=== PATIENT | female | born 1985 | race Caucasian/White ===

== ENCOUNTER 2017-10-25 08:40 | Day surgery (SDC) | payer OTHER ==
[~2017-10-25] VITALS: Ht 157.5 cm; Wt 52.2 kg
[~2017-10-25 08:40] MED LIST: ABAC300; ACET325 PO; ALBU90OI6; BCP; CITA20 PO; CYCL10 PO; Cleocin HCl150 MG PO; Cleocin HCl300 MG PO; DICLOFENAC GEL; DIPH50 PO; ETOD400 PO; HYDACE10B PO; HYDCHL12.5 PO; IBUP200; IBUP600 PO; LORA1 PO; MELO7.5 PO; NAPR375 PO; NAPR500 PO; Norco 5-325 Ta1 EACH PO; Nortrel1 EAC1; OMEP20ER PO; ONDA4ODT MM; OXYACE5T PO; PRAZ1 PO; PRENATAL 19 TA1 EACH PO; PROM25 PO; RXSULTRIDS PO; SERT100 PO; SERT25; SULTRIDS PO; TRAM50 PO; Ultram50 MG PO; VICODIN 5-3001 EACH PO
== END 2017-10-25 11:42 | disposition home or self-care (01) ==
LOC: ORSCSDS 08:40
PROVIDERS: Orthopaedic Surgery
PROC: 0LS14ZZ Reposition Right Shoulder Tendon, Percutaneous Endoscopic Approach (ICD-10-PCS; principal; 2017-10-25 10:15)
DX: S43.431A Superior glenoid labrum lesion of right shoulder, initial encounter (principal); M75.21 Bicipital tendinitis, right shoulder; F41.9 Anxiety disorder, unspecified; J45.909 Unspecified asthma, uncomplicated; Z79.899 Other long term (current) drug therapy; Z87.891 Personal history of nicotine dependence
CPT/HCPCS: C1713; J0171; J0690; J1100; J2250; J2370; J2405; J3010; J7120

== ENCOUNTER → 2017-11-30 | Outpatient (CLI) | payer OTHER ==
[2017-12-02 13:33] LABS: HPV Genotype 16 Not Detected (NOTDET); HPV Genotype 18 Not Detected (NOTDET)
[2017-12-12 10:42] LABS: HPV High Risk Other Not Detected (NOTDET)
== END ==
LOC: LAB SHORT 15:50 → LAB 15:50
PROVIDERS: Registered Nurse Community Health
DX: Z12.4 Encounter for screening for malignant neoplasm of cervix (principal); N76.0 Acute vaginitis
CPT/HCPCS: 87070; 87205; 87624; G0123

== ENCOUNTER → 2018-06-19 | Outpatient (CLI) | payer OTHER | LOC: LAB 15:45 → LAB SHORT 15:45 | DX: Z51.81 Encounter for therapeutic drug level monitoring (principal); Z79.899 Other long term (current) drug therapy | CPT/HCPCS: G0480 ==

== ENCOUNTER 2018-09-16 16:37 | Emergency (ER) | payer OTHER ==
[~2018-09-16] VITALS: Ht 157.5 cm; Wt 54.4 kg
[2018-09-16] MEDS ORDERED: CLON.1 PO (16:54)
[2018-09-16] MEDS ORDERED: DULO60 (16:54)
[2018-09-16] MEDS ORDERED: Omeprazole20 M1 (16:55)
[2018-09-16] MEDS ORDERED: OXYC5 (16:56)
[2018-09-16 17:32] LABS: BASOPHILS ABSOLUTE AUTO 0.03 K/mm3 (0.00-0.23); BASOPHILS PERCENT AUTO 0 % (0-2); EOSINOPHILS ABSOLUTE AUTO 0.18 K/mm3 (0.00-0.68); EOSINOPHILS PERCENT AUTO 2 % (0-6); Hematocrit 46.8 % (33.0-51.0); IMMATURE GRAN ABSOLUTE AUTO 0.02 K/mm3 (0.00-0.10); IMMATURE GRAN PERCENT AUTO 0 % (0-1); LYMPHOCYTES ABSOLUTE AUTO 1.26 K/mm3 (0.84-5.20); LYMPHOCYTES PERCENT AUTO 15 % (21-46); MONOCYTES ABSOLUTE AUTO 0.56 K/mm3 (0.16-1.47); MONOCYTES PERCENT AUTO 7 % (4-13); Mean Corpuscular HGB 29.1 pg (26.0-34.0); Mean Corpuscular HGB Conc 34.2 g/dL (31.5-36.5); Mean Corpuscular Volume 85 fL (80-100); Mean Platelet Volume 9.6 fL (9.1-12.4); NEUTROPHILS ABSOLUTE AUTO 6.54 K/mm3 (1.96-9.15); NEUTROPHILS PERCENT AUTO 76 % (41-73); Platelet Count 185 K/mm3 (150-400); RDW Coefficient Variation 12.8 % (11.7-14.2); RDW Standard Deviation 39.4 fL (35.1-46.3); White Blood Cell Count 8.59 K/mm3 (4.00-11.30)
[2018-09-16 17:50] LABS: Alanine Aminotransfer (ALT/SGP 20 U/L (12-78); Albumin, Blood 4.2 g/dL (3.4-5.0); Albumin/Globulin Ratio 1.2 (0.8-1.8); Alk Phos 78 U/L (50-136); Anion Gap 7 mmol/L (6-16); Aspartate Aminotrans (AST/SGOT 13 U/L (12-37); Bilirubin, Total 0.7 mg/dL (0.1-1.0); Blood Urea Nitrogen 7 mg/dL (8-24); CO2, Blood 24 mmol/L (21-32); Chloride, Blood 110 mmol/L (98-108); Creatinine, Blood 0.87 mg/dL (0.40-1.00); Globulin, Blood 3.4 g/dL (2.2-4.0); Glomerular Filtration Rate >60 (60-); Glucose, Blood 92 mg/dL (70-99); Potassium, Blood 3.7 mmol/L (3.5-5.5); Sodium, Blood 141 mmol/L (136-145); Total Protein, Blood 7.6 g/dL (6.4-8.2)
[2018-09-16] MEDS ORDERED: Bentyl20 MG PO (18:47)
[2018-09-16] MEDS ORDERED: EMVERM100 MG PO (18:47)
[2018-09-16] MEDS ORDERED: Norco 5-325 Ta1 EACH PO (18:47)
== END 2018-09-16 19:04 | disposition home or self-care (01) ==
LOC: ER 16:37
PROVIDERS: Emergency Medicine
DX: B82.9 Intestinal parasitism, unspecified (principal); F32.9 Major depressive disorder, single episode, unspecified; Z79.899 Other long term (current) drug therapy; Z87.891 Personal history of nicotine dependence
CPT/HCPCS: 36415; 74176; 80053; 83690; 85025; J2405; J3010

== ENCOUNTER 2018-10-02 17:40 | Emergency (ER) | payer OTHER ==
[~2018-10-02] VITALS: Ht 157.5 cm; Wt 54.4 kg
[~2018-10-02 17:40] MED LIST changes: +Bentyl20 MG PO; +CLON.1 PO; +DULO60; +EMVERM100 MG PO; +OXYC5; +Omeprazole20 M1
[2018-10-02 18:48] LABS: BASOPHILS ABSOLUTE AUTO 0.06 K/mm3 (0.00-0.23); BASOPHILS PERCENT AUTO 1 % (0-2); EOSINOPHILS ABSOLUTE AUTO 0.24 K/mm3 (0.00-0.68); EOSINOPHILS PERCENT AUTO 3 % (0-6); Hematocrit 40.9 % (33.0-51.0); IMMATURE GRAN ABSOLUTE AUTO 0.01 K/mm3 (0.00-0.10); IMMATURE GRAN PERCENT AUTO 0 % (0-1); LYMPHOCYTES ABSOLUTE AUTO 3.97 K/mm3 (0.84-5.20); LYMPHOCYTES PERCENT AUTO 47 % (21-46); MONOCYTES ABSOLUTE AUTO 0.59 K/mm3 (0.16-1.47); MONOCYTES PERCENT AUTO 7 % (4-13); Mean Corpuscular HGB 29.5 pg (26.0-34.0); Mean Corpuscular HGB Conc 34.2 g/dL (31.5-36.5); Mean Corpuscular Volume 86 fL (80-100); Mean Platelet Volume 9.9 fL (9.1-12.4); NEUTROPHILS ABSOLUTE AUTO 3.54 K/mm3 (1.96-9.15); NEUTROPHILS PERCENT AUTO 42 % (41-73); Platelet Count 239 K/mm3 (150-400); RDW Coefficient Variation 12.8 % (11.7-14.2); Red Blood Cell Count 4.74 M/mm3 (3.80-5.20); White Blood Cell Count 8.41 K/mm3 (4.00-11.30)
[2018-10-02 19:02] LABS: Alanine Aminotransfer (ALT/SGP 22 U/L (12-78); Albumin, Blood 3.8 g/dL (3.4-5.0); Albumin/Globulin Ratio 1.2 (0.8-1.8); Alk Phos 75 U/L (50-136); Anion Gap 9 mmol/L (6-16); Aspartate Aminotrans (AST/SGOT 14 U/L (12-37); Bilirubin, Total 0.3 mg/dL (0.1-1.0); Blood Urea Nitrogen 6 mg/dL (8-24); Bun/Creatinine Ratio 7.1 (12.0-20.0); CO2, Blood 23 mmol/L (21-32); Calcium, Blood 8.7 mg/dL (8.5-10.1); Chloride, Blood 107 mmol/L (98-108); Creatinine, Blood 0.84 mg/dL (0.40-1.00); Globulin, Blood 3.2 g/dL (2.2-4.0); Glomerular Filtration Rate >60 (60-); Glucose, Blood 80 mg/dL (70-99); Potassium, Blood 3.2 mmol/L (3.5-5.5); Sodium, Blood 139 mmol/L (136-145)
[2018-10-02 22:21] LABS: Source, Urine Clean Catch
[2018-10-02 22:24] LABS: Bilirubin, Urine Neg (Neg); Blood, Urine Neg (Neg); Glucose Qualitative, Urine Neg (Neg); Ketones, Urine Neg (Neg); Leukocyte Esterase, Urine Neg (Neg); Nitrite, Urine Neg (Neg); Protein, Urine Neg (Neg); Urobilinogen, Urine NORM (Normal)
[2018-10-02 22:30] LABS: Appearance, Urine Clear (Clear); Color, Urine Yellow (P-Yellow)
[2018-10-03] MEDS ORDERED: Zofran4 MG PO (00:10)
[2018-11-08] MEDS ORDERED: ALBU90OI61 INH (11:06)
[2018-11-08] MEDS ORDERED: CYCL10 PO (11:06)
[2018-11-08] MEDS ORDERED: ACET500 (11:07)
[2018-11-08] MEDS ORDERED: MULTI VITAMIN1 EACH PO (11:07)
[2018-11-08] MEDS ORDERED: ESCI10 PO (11:08)
[2018-11-08] MEDS ORDERED: METPHE10 PO (11:08)
[2018-11-08] MEDS ORDERED: CLON.1 PO (11:08)
[2018-11-08] MEDS ORDERED: LACT10SY PO (11:09)
[2018-11-08] MEDS ORDERED: DOCU100 PO (11:09)
[2018-11-08] MEDS ORDERED: Align4 MG PO (11:09)
[2018-11-08] MEDS ORDERED: SENN187 PO (11:10)
== END 2018-10-03 00:30 | disposition home or self-care (01) ==
LOC: ER 17:40
PROVIDERS: Emergency Medicine
DX: R10.9 Unspecified abdominal pain (principal); R11.2 Nausea with vomiting, unspecified; Z79.899 Other long term (current) drug therapy; Z87.891 Personal history of nicotine dependence
CPT/HCPCS: 36415; 80053; 81003; 83690; 85025; 96361; 96374; 96375; 99283-25; J2405; J3010; J7030

== ENCOUNTER 2018-10-06 13:52 | Emergency (ER) | payer OTHER ==
[~2018-10-06] VITALS: Ht 157.5 cm; Wt 56.7 kg
[~2018-10-06 13:52] MED LIST changes: +Zofran4 MG PO
[2018-10-06 15:03] LABS: BASOPHILS ABSOLUTE AUTO 0.05 K/mm3 (0.00-0.23); BASOPHILS PERCENT AUTO 1 % (0-2); EOSINOPHILS ABSOLUTE AUTO 0.25 K/mm3 (0.00-0.68); EOSINOPHILS PERCENT AUTO 4 % (0-6); Hematocrit 43.5 % (33.0-51.0); Hemoglobin 14.6 g/dL (11.5-16.0); IMMATURE GRAN ABSOLUTE AUTO 0.02 K/mm3 (0.00-0.10); IMMATURE GRAN PERCENT AUTO 0 % (0-1); LYMPHOCYTES ABSOLUTE AUTO 1.78 K/mm3 (0.84-5.20); LYMPHOCYTES PERCENT AUTO 28 % (21-46); MONOCYTES ABSOLUTE AUTO 0.62 K/mm3 (0.16-1.47); MONOCYTES PERCENT AUTO 10 % (4-13); Mean Corpuscular HGB 29.3 pg (26.0-34.0); Mean Corpuscular HGB Conc 33.6 g/dL (31.5-36.5); Mean Corpuscular Volume 87 fL (80-100); Mean Platelet Volume 9.8 fL (9.1-12.4); NEUTROPHILS ABSOLUTE AUTO 3.66 K/mm3 (1.96-9.15); NEUTROPHILS PERCENT AUTO 57 % (41-73); Platelet Count 220 K/mm3 (150-400); RDW Coefficient Variation 13.2 % (11.7-14.2); Red Blood Cell Count 4.98 M/mm3 (3.80-5.20); White Blood Cell Count 6.38 K/mm3 (4.00-11.30)
[2018-10-06 15:30] LABS: Alanine Aminotransfer (ALT/SGP 20 U/L (12-78); Albumin, Blood 3.8 g/dL (3.4-5.0); Albumin/Globulin Ratio 1.2 (0.8-1.8); Alk Phos 79 U/L (50-136); Anion Gap 4 mmol/L (6-16); Aspartate Aminotrans (AST/SGOT 13 U/L (12-37); Bilirubin, Total 0.2 mg/dL (0.1-1.0); Blood Urea Nitrogen 5 mg/dL (8-24); Bun/Creatinine Ratio 6.2 (12.0-20.0); CO2, Blood 26 mmol/L (21-32); Calcium, Blood 8.5 mg/dL (8.5-10.1); Chloride, Blood 110 mmol/L (98-108); Globulin, Blood 3.2 g/dL (2.2-4.0); Glomerular Filtration Rate >60 (60-); Glucose, Blood 107 mg/dL (70-99); Potassium, Blood 4.3 mmol/L (3.5-5.5); Sodium, Blood 140 mmol/L (136-145)
[2018-10-06] MEDS ORDERED: LEXAPRO PO (15:49)
[2018-10-06] MEDS ORDERED: DEPO IM (15:50)
[2018-10-06] MEDS ORDERED: MULTI VITAMIN1 EACH PO (15:52)
[2018-10-06] MEDS ORDERED: BENTYL PO (15:52)
[2018-10-06 15:58] LABS: Source, Urine Clean Catch
[2018-10-06 16:24] LABS: Appearance, Urine Clear (Clear); Bilirubin, Urine Neg (Neg); Blood, Urine Neg (Neg); Color, Urine Yellow (P-Yellow); Glucose Qualitative, Urine Neg (Neg); Ketones, Urine Neg (Neg); Leukocyte Esterase, Urine Neg (Neg); Nitrite, Urine Neg (Neg); Protein, Urine Neg (Neg); Specific Gravity, Urine 1.005 (1.003-1.022); Urobilinogen, Urine NORM (Normal)
[2018-10-06] MEDS ORDERED: HYDR25SUP PR (17:34)
[2018-10-06] MEDS ORDERED: Ultram50 MG PO (17:34)
[2018-10-06] MEDS ORDERED: Kristalose20 GM PO (17:34)
[2018-10-06] MEDS ORDERED: Magnesium Citr296 ML PO (17:34)
[2018-10-07] MEDS ORDERED: Moviprep Powde1 EACH PO (21:02)
[2018-11-08] MEDS ORDERED: ALBU90OI61 INH (11:06)
[2018-11-08] MEDS ORDERED: CYCL10 PO (11:06)
[2018-11-08] MEDS ORDERED: MULTI VITAMIN1 EACH PO (11:07)
[2018-11-08] MEDS ORDERED: ACET500 (11:07)
[2018-11-08] MEDS ORDERED: CLON.1 PO (11:08)
[2018-11-08] MEDS ORDERED: METPHE10 PO (11:08)
[2018-11-08] MEDS ORDERED: ESCI10 PO (11:08)
[2018-11-08] MEDS ORDERED: LACT10SY PO (11:09)
[2018-11-08] MEDS ORDERED: DOCU100 PO (11:09)
[2018-11-08] MEDS ORDERED: Align4 MG PO (11:09)
[2018-11-08] MEDS ORDERED: SENN187 PO (11:10)
== END 2018-10-06 17:40 | disposition home or self-care (01) ==
LOC: ER 13:52
PROVIDERS: Physician Assistant
DX: K59.00 Constipation, unspecified (principal); K64.9 Unspecified hemorrhoids; J45.909 Unspecified asthma, uncomplicated; F32.9 Major depressive disorder, single episode, unspecified; F17.210 Nicotine dependence, cigarettes, uncomplicated
CPT/HCPCS: 36415; 46600; 74176; 80053; 81003; 81025; 83690; 85025; 96361; 96374; 96375; 96376; 99284-25; J1170; J2405; J7030

== ENCOUNTER 2018-10-07 17:50 | Emergency (ER) | payer OTHER ==
[~2018-10-07] VITALS: Ht 157.5 cm; Wt 56.7 kg
[~2018-10-07 17:50] MED LIST changes: +BENTYL PO; +DEPO IM; +HYDR25SUP PR; +Kristalose20 GM PO; +LEXAPRO PO; +MULTI VITAMIN1 EACH PO; +Magnesium Citr296 ML PO
[2018-10-07] MEDS ORDERED: Moviprep Powde1 EACH PO (21:02)
[2018-11-08] MEDS ORDERED: ALBU90OI61 INH (11:06)
[2018-11-08] MEDS ORDERED: CYCL10 PO (11:06)
[2018-11-08] MEDS ORDERED: ACET500 (11:07)
[2018-11-08] MEDS ORDERED: MULTI VITAMIN1 EACH PO (11:07)
[2018-11-08] MEDS ORDERED: ESCI10 PO (11:08)
[2018-11-08] MEDS ORDERED: CLON.1 PO (11:08)
[2018-11-08] MEDS ORDERED: METPHE10 PO (11:08)
[2018-11-08] MEDS ORDERED: Align4 MG PO (11:09)
[2018-11-08] MEDS ORDERED: LACT10SY PO (11:09)
[2018-11-08] MEDS ORDERED: DOCU100 PO (11:09)
[2018-11-08] MEDS ORDERED: SENN187 PO (11:10)
== END 2018-10-07 21:18 | disposition home or self-care (01) ==
LOC: ER 17:50
DX: K59.00 Constipation, unspecified (principal); K56.7 Ileus, unspecified; Z79.899 Other long term (current) drug therapy; J45.909 Unspecified asthma, uncomplicated; F32.9 Major depressive disorder, single episode, unspecified; F17.210 Nicotine dependence, cigarettes, uncomplicated
CPT/HCPCS: 36415; 74022; 96361; 96374; 96375; 99283-25; J1170; J2765; J7030

== ENCOUNTER 2018-11-16 06:52 | Day surgery (SDC) | payer OTHER ==
[~2018-11-16] VITALS: Ht 160 cm; Wt 56.1 kg
[~2018-11-16 06:52] MED LIST changes: +ACET500; +ALBU90OI61 INH; +Align4 MG PO; +DOCU100 PO; +ESCI10 PO; +LACT10SY PO; +METPHE10 PO; +Moviprep Powde1 EACH PO; +SENN187 PO
[2018-11-16] MEDS ORDERED: OXYC5 (07:47)
--- NOTE | 2018-11-16 07:52 | NUR ---
11/16/18 0752 Dusty Momin 1ST IV ATTEMPT IN RFA UNSUCCESSFUL, ORSC.BDK 2ND IV ATTEMPT IN RAC UNSUCCESSFUL, ORSC.BDK 3RD IV ATTE,PT IN RW SUCCESSFULL, ORSC.DMB
[2018-11-17] MEDS ORDERED: Bentyl10 MG/ML (16:59)
[2018-11-17] MEDS ORDERED: IBUP400 PO (19:53)
[2018-11-17] MEDS ORDERED: Percocet 5-3251 EACH PO (19:53)
== END 2018-11-16 08:55 | disposition home or self-care (01) ==
LOC: ORSCSDS 06:52
PROVIDERS: Student in an Organized Health Care Education/Training Program
PROC: 0DBE8ZX Excision of Large Intestine, Via Natural or Artificial Opening Endoscopic, Diagnostic (ICD-10-PCS; principal; 2018-11-16 08:00)
DX: R10.9 Unspecified abdominal pain (principal); R14.0 Abdominal distension (gaseous); K92.1 Melena; K62.89 Other specified diseases of anus and rectum; J45.909 Unspecified asthma, uncomplicated; F32.9 Major depressive disorder, single episode, unspecified; F17.210 Nicotine dependence, cigarettes, uncomplicated; Z79.899 Other long term (current) drug therapy
CPT/HCPCS: 88305; J0330; J1980; J2250; J2405; J7120

== ENCOUNTER 2018-11-17 15:34 | Emergency (ER) | payer OTHER ==
[~2018-11-17] VITALS: Ht 157.5 cm; Wt 56.7 kg
[2018-11-17 15:59] LABS: BASOPHILS ABSOLUTE AUTO 0.05 K/mm3 (0.00-0.23); BASOPHILS PERCENT AUTO 1 % (0-2); EOSINOPHILS ABSOLUTE AUTO 0.15 K/mm3 (0.00-0.68); EOSINOPHILS PERCENT AUTO 2 % (0-6); Hematocrit 44.4 % (33.0-51.0); Hemoglobin 15.3 g/dL (11.5-16.0); IMMATURE GRAN ABSOLUTE AUTO 0.02 K/mm3 (0.00-0.10); IMMATURE GRAN PERCENT AUTO 0 % (0-1); LYMPHOCYTES ABSOLUTE AUTO 2.41 K/mm3 (0.84-5.20); LYMPHOCYTES PERCENT AUTO 33 % (21-46); MONOCYTES ABSOLUTE AUTO 0.46 K/mm3 (0.16-1.47); MONOCYTES PERCENT AUTO 6 % (4-13); Mean Corpuscular HGB 29.5 pg (26.0-34.0); Mean Corpuscular HGB Conc 34.5 g/dL (31.5-36.5); Mean Corpuscular Volume 86 fL (80-100); Mean Platelet Volume 10.4 fL (9.1-12.4); NEUTROPHILS ABSOLUTE AUTO 4.33 K/mm3 (1.96-9.15); NEUTROPHILS PERCENT AUTO 58 % (41-73); Platelet Count 221 K/mm3 (150-400); RDW Coefficient Variation 12.6 % (11.7-14.2); RDW Standard Deviation 39.2 fL (35.1-46.3); Red Blood Cell Count 5.19 M/mm3 (3.80-5.20); White Blood Cell Count 7.42 K/mm3 (4.00-11.30)
[2018-11-17 16:08] LABS: Source, Urine Clean Catch
[2018-11-17 16:14] LABS: Appearance, Urine Clear (Clear); Bilirubin, Urine Neg (Neg); Blood, Urine Neg (Neg); Color, Urine Yellow (P-Yellow); Glucose Qualitative, Urine Neg (Neg); Ketones, Urine Neg (Neg); Leukocyte Esterase, Urine Neg (Neg); Nitrite, Urine Neg (Neg); Protein, Urine Neg (Neg); Specific Gravity, Urine 1.005 (1.003-1.022); Urobilinogen, Urine NORM (Normal)
[2018-11-17 16:28] LABS: Alanine Aminotransfer (ALT/SGP 27 U/L (12-78); Albumin, Blood 4.1 g/dL (3.4-5.0); Albumin/Globulin Ratio 1.2 (0.8-1.8); Alk Phos 80 U/L (50-136); Anion Gap 8 mmol/L (6-16); Aspartate Aminotrans (AST/SGOT 19 U/L (12-37); Bilirubin, Total 0.2 mg/dL (0.1-1.0); Blood Urea Nitrogen 5 mg/dL (8-24); Bun/Creatinine Ratio 6.2 (12.0-20.0); CO2, Blood 23 mmol/L (21-32); Chloride, Blood 112 mmol/L (98-108); Globulin, Blood 3.5 g/dL (2.2-4.0); Glomerular Filtration Rate >60 (60-); Glucose, Blood 95 mg/dL (70-99); Potassium, Blood 3.5 mmol/L (3.5-5.5); Sodium, Blood 143 mmol/L (136-145); Total Protein, Blood 7.6 g/dL (6.4-8.2)
[2018-11-17] MEDS ORDERED: Bentyl10 MG/ML (16:59)
[2018-11-17] MEDS ORDERED: Percocet 5-3251 EACH PO (19:53)
[2018-11-17] MEDS ORDERED: IBUP400 PO (19:53)
== END 2018-11-17 20:06 | disposition home or self-care (01) ==
LOC: ER 15:34
PROVIDERS: Physician Assistant
DX: K92.1 Melena (principal); N80.9 Endometriosis, unspecified; J45.909 Unspecified asthma, uncomplicated; F32.9 Major depressive disorder, single episode, unspecified; F17.210 Nicotine dependence, cigarettes, uncomplicated; Z79.899 Other long term (current) drug therapy
CPT/HCPCS: 36415; 74177; 80053; 81003; 84703; 85025; J1170; J2405; J7120; Q9967

== ENCOUNTER 2019-04-23 10:29 | Emergency (ER) | payer OTHER ==
[~2019-04-23] VITALS: Ht 157.5 cm; Wt 59.0 kg
[~2019-04-23 10:29] MED LIST changes: +Bentyl10 MG/ML; +IBUP400 PO; +Percocet 5-3251 EACH PO
[2019-04-23] MEDS ORDERED: Triamcinolone A15 G3 TOP (11:12)
== END 2019-04-23 11:33 | disposition home or self-care (01) ==
LOC: ER 10:29
DX: L30.1 Dyshidrosis [pompholyx] (principal); Z79.899 Other long term (current) drug therapy; J45.909 Unspecified asthma, uncomplicated; F32.9 Major depressive disorder, single episode, unspecified; F17.210 Nicotine dependence, cigarettes, uncomplicated
CPT/HCPCS: 99282

== ENCOUNTER → 2019-06-18 | Outpatient (CLI) | payer OTHER ==
[~2019-06-18] MED LIST changes: +Catapres0.1 MG PO; +DICL75ER PO; +Depo-Subq104 MG/0.6; +METPHE20 PO; +OXYC5 PO; +Triamcinolone A15 G3 TOP; +Vistaril25 MG PO
[2019-06-18 12:15] LABS: U Amphetamine Screen Not Detected; U Barbituate Screen Not Detected; U Benzodiazapine Screen Not Detected; U Buprenorphine Screen Not Detected; U Cannabinoids Screen Not Detected; U Cocaine Screen Not Detected; U Methadone Screen Not Detected; U Methamphetamine Screen Not Detected; U Opiates Screen Not Detected; U Oxycodone Screen Not Detected; U Phencyclidine Screen Not Detected; U Propoxyphene Screen Not Detected
== END ==
LOC: LAB 10:10 → LAB SHORT 10:10
PROVIDERS: Student in an Organized Health Care Education/Training Program
DX: Z51.81 Encounter for therapeutic drug level monitoring (principal); Z79.899 Other long term (current) drug therapy

== ENCOUNTER 2019-06-19 19:44 | Emergency (ER) | payer OTHER ==
[~2019-06-19] VITALS: Ht 157.5 cm; Wt 53.5 kg
[~2019-06-19 19:44] MED LIST changes: -Catapres0.1 MG PO; -DICL75ER PO; -Depo-Subq104 MG/0.6; -METPHE20 PO; -OXYC5 PO; -Vistaril25 MG PO
[2019-06-19] MEDS ORDERED: METPHE20 PO (21:04)
[2019-06-19] MEDS ORDERED: Depo-Subq104 MG/0.6 (21:04)
[2019-06-19] MEDS ORDERED: OXYC5 PO (21:04)
== END 2019-06-19 21:01 | disposition home or self-care (01) ==
LOC: ER 19:44
DX: S52.551A Other extraarticular fracture of lower end of right radius, initial encounter for closed fracture (principal); J45.909 Unspecified asthma, uncomplicated; F32.9 Major depressive disorder, single episode, unspecified; F17.210 Nicotine dependence, cigarettes, uncomplicated; Z79.899 Other long term (current) drug therapy; V00.211A Fall from ice-skates, initial encounter
CPT/HCPCS: 29125; 73110; 99283-25; A9270; A9270-GY

== ENCOUNTER 2019-06-25 15:29 | Emergency (ER) | payer OTHER ==
[~2019-06-25] VITALS: Ht 160 cm; Wt 54.4 kg
[~2019-06-25 15:29] MED LIST changes: +Depo-Subq104 MG/0.6; +METPHE20 PO; +OXYC5 PO
[2019-06-25] MEDS ORDERED: Catapres0.1 MG PO (15:51)
[2019-06-25] MEDS ORDERED: Vistaril25 MG PO (15:51)
[2019-06-25] MEDS ORDERED: DICL75ER PO (15:51)
== END 2019-06-25 15:55 | disposition home or self-care (01) ==
LOC: ER 15:29
DX: S52.501D Unspecified fracture of the lower end of right radius, subsequent encounter for closed fracture with routine healing (principal); F32.9 Major depressive disorder, single episode, unspecified; F17.200 Nicotine dependence, unspecified, uncomplicated; Z79.899 Other long term (current) drug therapy; V00.211D Fall from ice-skates, subsequent encounter
CPT/HCPCS: 99281

== ENCOUNTER 2019-08-27 13:50 | Emergency (ER) | payer OTHER ==
[~2019-08-27] VITALS: Ht 157.5 cm; Wt 59.0 kg
[~2019-08-27 13:50] MED LIST changes: +Catapres0.1 MG PO; +DICL75ER PO; +Vistaril25 MG PO
[2019-08-27 14:29] LABS: BASOPHILS ABSOLUTE AUTO 0.07 K/mm3 (0.00-0.23); BASOPHILS PERCENT AUTO 1 % (0-2); EOSINOPHILS ABSOLUTE AUTO 0.17 K/mm3 (0.00-0.68); EOSINOPHILS PERCENT AUTO 1 % (0-6); Hematocrit 47.1 % (33.0-51.0); Hemoglobin 16.1 g/dL (11.5-16.0); IMMATURE GRAN ABSOLUTE AUTO 0.03 K/mm3 (0.00-0.10); IMMATURE GRAN PERCENT AUTO 0 % (0-1); LYMPHOCYTES ABSOLUTE AUTO 3.45 K/mm3 (0.84-5.20); LYMPHOCYTES PERCENT AUTO 28 % (21-46); MONOCYTES ABSOLUTE AUTO 0.84 K/mm3 (0.16-1.47); MONOCYTES PERCENT AUTO 7 % (4-13); Mean Corpuscular HGB 30.5 pg (26.0-34.0); Mean Corpuscular HGB Conc 34.2 g/dL (31.5-36.5); Mean Corpuscular Volume 89 fL (80-100); Mean Platelet Volume 9.9 fL (9.1-12.4); NEUTROPHILS ABSOLUTE AUTO 7.61 K/mm3 (1.96-9.15); NEUTROPHILS PERCENT AUTO 63 % (41-73); Platelet Count 252 K/mm3 (150-400); RDW Coefficient Variation 12.9 % (11.7-14.2); RDW Standard Deviation 42.2 fL (35.1-46.3); Red Blood Cell Count 5.28 M/mm3 (3.80-5.20); White Blood Cell Count 12.17 K/mm3 (4.00-11.30)
[2019-08-27 15:15] LABS: Alanine Aminotransfer (ALT/SGP 19 U/L (12-78); Anion Gap 7 mmol/L (6-16); Aspartate Aminotrans (AST/SGOT 11 U/L (12-37); Bilirubin, Total 0.3 mg/dL (0.1-1.0); Blood Urea Nitrogen 8 mg/dL (8-24); CO2, Blood 23 mmol/L (21-32); Calcium, Blood 8.9 mg/dL (8.5-10.1); Chloride, Blood 108 mmol/L (98-108); Glucose, Blood 124 mg/dL (70-99); Potassium, Blood 3.8 mmol/L (3.5-5.5); Sodium, Blood 138 mmol/L (136-145)
[2019-08-27 15:16] LABS: Albumin/Globulin Ratio 1.1 (0.8-1.8); Alk Phos 71 U/L (50-136); Beta HCG, Quantitative, Serum <1 mIU/mL (0-3); Bun/Creatinine Ratio 10.3 (12.0-20.0); Creatinine, Blood 0.78 mg/dL (0.40-1.00); Globulin, Blood 3.7 g/dL (2.2-4.0); Glomerular Filtration Rate >60 (60-); Total Protein, Blood 7.7 g/dL (6.4-8.2)
== END 2019-08-27 17:00 | disposition home or self-care (01) ==
LOC: ER 13:50
PROVIDERS: Physician Assistant
DX: R10.31 Right lower quadrant pain (principal); N80.9 Endometriosis, unspecified; F32.9 Major depressive disorder, single episode, unspecified; J45.909 Unspecified asthma, uncomplicated; F17.200 Nicotine dependence, unspecified, uncomplicated; Z79.899 Other long term (current) drug therapy
CPT/HCPCS: 36415; 74176; 76856; 80053; 84702; 85025; 86850; 86900; 86901; 93005; 93010; 96361; 96374; 96375; 96376; 99284-25; J1170; J2405; J7030

== ENCOUNTER 2020-07-06 10:25 | Emergency (ER) | payer OTHER ==
[~2020-07-06] VITALS: Ht 160 cm; Wt 45.4 kg
[~2020-07-06 10:25] MED LIST changes: +ACETAMINOPHEN500 MG PO; +Penicillin V P500 MG PO
[2020-07-06] MEDS ORDERED: CLON.5 PO (11:24)
[2020-07-06] MEDS ORDERED: ACETAMINOPHEN500 MG PO (12:09)
[2020-07-06] MEDS ORDERED: Benadryl25 MG PO (12:09)
== END 2020-07-06 12:49 | disposition home or self-care (01) ==
LOC: ER 10:25
DX: T63.441A Toxic effect of venom of bees, accidental (unintentional), initial encounter (principal); R06.02 Shortness of breath; R22.0 Localized swelling, mass and lump, head; F32.9 Major depressive disorder, single episode, unspecified; F17.210 Nicotine dependence, cigarettes, uncomplicated; Z79.899 Other long term (current) drug therapy
CPT/HCPCS: 36415; 96374; 96375; 99282-25; A9270-GY; J0171; J1200; J1885; J2060; J2930

== ENCOUNTER 2020-10-26 15:12 | Emergency (ER) | payer OTHER ==
[~2020-10-26] VITALS: Ht 157.5 cm; Wt 54.4 kg
[~2020-10-26 15:12] MED LIST changes: +Benadryl25 MG PO; +CLON.5 PO
[2020-10-26] MEDS ORDERED: Veetids 500500 MG PO (17:49)
[2021-01-24] MEDS ORDERED: VENLAFAXINE HC150 M1 PO (21:35)
[2021-01-24] MEDS ORDERED: GABA100 PO (22:17)
[2021-01-24] MEDS ORDERED: CYCL10 PO (22:18)
== END 2020-10-26 18:12 | disposition home or self-care (01) ==
LOC: ER 15:12
DX: S02.5XXA Fracture of tooth (traumatic), initial encounter for closed fracture (principal); F17.210 Nicotine dependence, cigarettes, uncomplicated; Z79.899 Other long term (current) drug therapy; Z88.6 Allergy status to analgesic agent; X58.XXXA Exposure to other specified factors, initial encounter; Y93.89 Activity, other specified
CPT/HCPCS: 96372; 99282-25; A9270; J1885

== ENCOUNTER 2020-12-29 14:19 | Emergency (ER) | payer OTHER ==
[~2020-12-29] VITALS: Ht 157.5 cm; Wt 54.4 kg
[~2020-12-29 14:19] MED LIST changes: +Veetids 500500 MG PO
[2020-12-29] MEDS ORDERED: VENL25 PO (14:53)
[2020-12-29] MEDS ORDERED: Norco 5-325 Ta1 EACH PO (15:10)
[2021-01-24] MEDS ORDERED: VENLAFAXINE HC150 M1 PO (21:35)
[2021-01-24] MEDS ORDERED: GABA100 PO (22:17)
[2021-01-24] MEDS ORDERED: CYCL10 PO (22:18)
== END 2020-12-29 15:18 | disposition home or self-care (01) ==
LOC: ER 14:19
DX: S93.401A Sprain of unspecified ligament of right ankle, initial encounter (principal); F17.210 Nicotine dependence, cigarettes, uncomplicated; Z79.899 Other long term (current) drug therapy; X50.1XXA Overexertion from prolonged static or awkward postures, initial encounter
CPT/HCPCS: 29515; 73630; 99283-25; L1906

== ENCOUNTER 2021-02-06 17:29 | Emergency (ER) | payer OTHER ==
[~2021-02-06] VITALS: Ht 157.5 cm; Wt 56.7 kg
[~2021-02-06 17:29] MED LIST changes: +GABA100 PO; +VENL25 PO; +VENLAFAXINE HC150 M1 PO
[2021-02-06] MEDS ORDERED: LORA.5 PO (18:04)
[2021-02-06 19:10] LABS: BASOPHILS ABSOLUTE AUTO 0.08 K/mm3 (0.00-0.23); BASOPHILS PERCENT AUTO 1 % (0-2); EOSINOPHILS ABSOLUTE AUTO 0.03 K/mm3 (0.00-0.68); EOSINOPHILS PERCENT AUTO 0 % (0-6); Hematocrit 39.1 % (33.0-51.0); Hemoglobin 13.7 g/dL (11.5-16.0); IMMATURE GRAN ABSOLUTE AUTO 0.02 K/mm3 (0.00-0.10); IMMATURE GRAN PERCENT AUTO 0 % (0-1); LYMPHOCYTES ABSOLUTE AUTO 2.56 K/mm3 (0.84-5.20); LYMPHOCYTES PERCENT AUTO 35 % (21-46); MONOCYTES ABSOLUTE AUTO 0.81 K/mm3 (0.16-1.47); MONOCYTES PERCENT AUTO 11 % (4-13); Mean Corpuscular HGB 28.1 pg (26.0-34.0); Mean Corpuscular Volume 80 fL (80-100); Mean Platelet Volume 9.7 fL (9.1-12.4); NEUTROPHILS ABSOLUTE AUTO 3.93 K/mm3 (1.96-9.15); NEUTROPHILS PERCENT AUTO 53 % (41-73); Platelet Count 298 K/mm3 (150-400); RDW Coefficient Variation 12.7 % (11.7-14.2); RDW Standard Deviation 36.6 fL (35.1-46.3); Red Blood Cell Count 4.88 M/mm3 (3.80-5.20); White Blood Cell Count 7.43 K/mm3 (4.00-11.30)
[2021-02-06 19:30] LABS: Alanine Aminotransfer (ALT/SGP 30 U/L (12-78); Albumin/Globulin Ratio 1.3 (0.8-1.8); Alk Phos 64 U/L (50-136); Anion Gap 5 mmol/L (6-16); Aspartate Aminotrans (AST/SGOT 25 U/L (12-37); Bilirubin, Total 0.7 mg/dL (0.1-1.0); Blood Urea Nitrogen 14 mg/dL (8-24); CO2, Blood 25 mmol/L (21-32); Calcium, Blood 9.3 mg/dL (8.5-10.1); Chloride, Blood 110 mmol/L (98-108); Creatinine, Blood 0.93 mg/dL (0.40-1.00); Globulin, Blood 3.1 g/dL (2.2-4.0); Glomerular Filtration Rate >60 (60-); Glucose, Blood 100 mg/dL (70-99); Potassium, Blood 3.5 mmol/L (3.5-5.5); Sodium, Blood 140 mmol/L (136-145); Total Protein, Blood 7.1 g/dL (6.4-8.2)
[2021-02-06 21:20] LABS: Source, Urine Clean Catch
[2021-02-06 21:23] LABS: Bilirubin, Urine Neg (Neg); Blood, Urine Neg (Neg); Glucose Qualitative, Urine Neg (Neg); Ketones, Urine 2+ (Neg); Leukocyte Esterase, Urine Neg (Neg); Nitrite, Urine Neg (Neg); Protein, Urine 1+ (Neg); Specific Gravity, Urine 1.025 (1.003-1.022); Urobilinogen, Urine NORM (Normal)
[2021-02-06 21:32] LABS: Appearance, Urine Clear (Clear); Color, Urine Yellow (P-Yellow)
[2021-02-06 21:34] LABS: U Amphetamine Screen Not Detected; U Barbituate Screen Not Detected; U Benzodiazapine Screen DETECTED; U Buprenorphine Screen Not Detected; U Cannabinoids Screen Not Detected; U Cocaine Screen Not Detected; U Methadone Screen Not Detected; U Methamphetamine Screen Not Detected; U Opiates Screen DETECTED; U Oxycodone Screen Not Detected; U Phencyclidine Screen Not Detected; U Propoxyphene Screen Not Detected
== END 2021-02-06 22:51 | disposition home or self-care (01) ==
LOC: ER 17:29
PROVIDERS: Physician Assistant
DX: R21 Rash and other nonspecific skin eruption (principal); R10.9 Unspecified abdominal pain; J45.909 Unspecified asthma, uncomplicated; F17.210 Nicotine dependence, cigarettes, uncomplicated; Z88.6 Allergy status to analgesic agent; Z79.899 Other long term (current) drug therapy
CPT/HCPCS: 74177; 80053; 81025; 83690; 85025; 96374-59; 99284-25; A9270; J1200; Q9967

== ENCOUNTER 2021-04-28 16:31 | Emergency (ER) | payer OTHER ==
[~2021-04-28] VITALS: Ht 157.5 cm; Wt 54.4 kg
[~2021-04-28 16:31] MED LIST changes: +LORA.5 PO
[2021-04-28] MEDS ORDERED: CYCL10 PO (18:39)
== END 2021-04-28 19:08 | disposition home or self-care (01) ==
LOC: ER 16:31
DX: S06.0X1A Concussion with loss of consciousness of 30 minutes or less, initial encounter (principal); S80.11XA Contusion of right lower leg, initial encounter; M54.2 Cervicalgia; F17.210 Nicotine dependence, cigarettes, uncomplicated; J45.909 Unspecified asthma, uncomplicated; Z91.040 Latex allergy status; Z88.6 Allergy status to analgesic agent; W14.XXXA Fall from tree, initial encounter
CPT/HCPCS: 70450; 71045; 72125; 73590; 99284-25; A9270

== ENCOUNTER → 2021-08-10 | Outpatient (CLI) | payer OTHER ==
[2021-08-10 18:43] LABS: BASOPHILS ABSOLUTE AUTO 0.05 K/mm3 (0.00-0.23); BASOPHILS PERCENT AUTO 1 % (0-2); EOSINOPHILS ABSOLUTE AUTO 0.19 K/mm3 (0.00-0.68); EOSINOPHILS PERCENT AUTO 4 % (0-6); Hematocrit 39.7 % (33.0-51.0); Hemoglobin 13.3 g/dL (11.5-16.0); IMMATURE GRAN ABSOLUTE AUTO 0.01 K/mm3 (0.00-0.10); IMMATURE GRAN PERCENT AUTO 0 % (0-1); LYMPHOCYTES ABSOLUTE AUTO 2.46 K/mm3 (0.84-5.20); LYMPHOCYTES PERCENT AUTO 48 % (21-46); MONOCYTES ABSOLUTE AUTO 0.48 K/mm3 (0.16-1.47); MONOCYTES PERCENT AUTO 9 % (4-13); Mean Corpuscular HGB 28.7 pg (26.0-34.0); Mean Corpuscular HGB Conc 33.5 g/dL (31.5-36.5); Mean Corpuscular Volume 86 fL (80-100); Mean Platelet Volume 11.1 fL (9.1-12.4); NEUTROPHILS ABSOLUTE AUTO 1.99 K/mm3 (1.96-9.15); NEUTROPHILS PERCENT AUTO 38 % (41-73); Platelet Count 174 K/mm3 (150-400); RDW Coefficient Variation 12.5 % (11.7-14.2); RDW Standard Deviation 39.5 fL (35.1-46.3); Red Blood Cell Count 4.63 M/mm3 (3.80-5.20); White Blood Cell Count 5.18 K/mm3 (4.00-11.30)
[2021-08-10 21:30] LABS: CHOL/HDL RATIO 3.2; Cholesterol 191 mg/dL (50-200); HDL Cholesterol 60 mg/dL (>39); LDL/HDL RATIO 1.7; Low Density Lipoprotein Chol 102 mg/dL (0-110); Thyroid Stimulating Hormone 0.912 uIU/mL (0.360-4.800); Triglycerides 147 mg/dL (30-140); Very Low Density Lipoprot Chol 29 mg/dL (6-28)
[2021-08-10 21:57] LABS: Alanine Aminotransfer (ALT/SGP 27 U/L (12-78); Albumin, Blood 3.5 g/dL (3.4-5.0); Albumin/Globulin Ratio 1.1 (0.8-1.8); Alk Phos 57 U/L (50-136); Anion Gap 4 mmol/L (6-16); Aspartate Aminotrans (AST/SGOT 25 U/L (12-37); Bilirubin, Total 0.1 mg/dL (0.1-1.0); Blood Urea Nitrogen 8 mg/dL (8-24); Bun/Creatinine Ratio 8.5 (12.0-20.0); CO2, Blood 30 mmol/L (21-32); Calcium, Blood 8.8 mg/dL (8.5-10.1); Chloride, Blood 104 mmol/L (98-108); Creatinine, Blood 0.94 mg/dL (0.40-1.00); Globulin, Blood 3.3 g/dL (2.2-4.0); Glomerular Filtration Rate >60 (60-); Glucose, Blood 100 mg/dL (70-99); Potassium, Blood 4.1 mmol/L (3.5-5.5); Sodium, Blood 138 mmol/L (136-145); Total Protein, Blood 6.8 g/dL (6.4-8.2)
== END ==
LOC: LAB 18:08 → LAB SHORT 18:08
PROVIDERS: Nurse Practitioner Family
DX: Z00.00 Encounter for general adult medical examination without abnormal findings (principal); Z13.0 Encounter for screening for diseases of the blood and blood-forming organs and certain disorders involving the immune mechanism; Z13.1 Encounter for screening for diabetes mellitus; Z13.6 Encounter for screening for cardiovascular disorders; Z13.29 Encounter for screening for other suspected endocrine disorder; Z13.228 Encounter for screening for other metabolic disorders
CPT/HCPCS: 80053; 80061; 83036; 84443; 85025

== ENCOUNTER → 2021-12-17 | Outpatient (CLI) | payer OTHER ==
[2021-12-18 10:56] LABS: Candida species (DNA Probe) Negative (NEGATIVE); G. vaginalis (DNA Probe) Negative (NEGATIVE); T. vaginalis (DNA Probe) Negative (NEGATIVE)
== END | disposition home or self-care (01) ==
LOC: LAB SHORT 16:00 → LAB 16:00
PROVIDERS: Nurse Practitioner
DX: N89.8 Other specified noninflammatory disorders of vagina (principal)
CPT/HCPCS: 87480; 87510; 87660

== ENCOUNTER → 2021-12-22 | Outpatient (CLI) | payer OTHER ==
[2021-12-22 15:59] LABS: BASOPHILS ABSOLUTE AUTO 0.07 K/mm3 (0.00-0.23); BASOPHILS PERCENT AUTO 1 % (0-2); EOSINOPHILS PERCENT AUTO 2 % (0-6); Hematocrit 38.7 % (33.0-51.0); Hemoglobin 13.5 g/dL (11.5-16.0); IMMATURE GRAN ABSOLUTE AUTO 0.02 K/mm3 (0.00-0.10); IMMATURE GRAN PERCENT AUTO 0 % (0-1); LYMPHOCYTES ABSOLUTE AUTO 2.42 K/mm3 (0.84-5.20); LYMPHOCYTES PERCENT AUTO 37 % (21-46); MONOCYTES ABSOLUTE AUTO 0.63 K/mm3 (0.16-1.47); MONOCYTES PERCENT AUTO 10 % (4-13); Mean Corpuscular HGB 28.7 pg (26.0-34.0); Mean Corpuscular HGB Conc 34.9 g/dL (31.5-36.5); Mean Corpuscular Volume 82 fL (80-100); Mean Platelet Volume 10.5 fL (9.1-12.4); NEUTROPHILS ABSOLUTE AUTO 3.35 K/mm3 (1.96-9.15); NEUTROPHILS PERCENT AUTO 51 % (41-73); Platelet Count 227 K/mm3 (150-400); RDW Coefficient Variation 12.4 % (11.7-14.2); RDW Standard Deviation 37.2 fL (35.1-46.3); Red Blood Cell Count 4.71 M/mm3 (3.80-5.20); White Blood Cell Count 6.59 K/mm3 (4.00-11.30)
[2021-12-22 22:28] LABS: Alanine Aminotransfer (ALT/SGP 49 U/L (12-78); Albumin, Blood 4.1 g/dL (3.4-5.0); Albumin/Globulin Ratio 1.6 (0.8-1.8); Alk Phos 51 U/L (50-136); Anion Gap 4 mmol/L (6-16); Aspartate Aminotrans (AST/SGOT 31 U/L (12-37); Bilirubin, Total 0.8 mg/dL (0.1-1.0); Blood Urea Nitrogen 16 mg/dL (8-24); Bun/Creatinine Ratio 16.1 (12.0-20.0); CO2, Blood 25 mmol/L (21-32); Calcium, Blood 9.1 mg/dL (8.5-10.1); Chloride, Blood 110 mmol/L (98-108); Globulin, Blood 2.5 g/dL (2.2-4.0); Glomerular Filtration Rate >60 (60-); Glucose, Blood 118 mg/dL (70-99); Potassium, Blood 3.5 mmol/L (3.5-5.5); Sodium, Blood 139 mmol/L (136-145); Total Protein, Blood 6.6 g/dL (6.4-8.2)
== END | disposition home or self-care (01) ==
LOC: LAB SHORT 15:14
PROVIDERS: Nurse Practitioner
DX: K58.9 Irritable bowel syndrome, unspecified (principal); R10.30 Lower abdominal pain, unspecified
CPT/HCPCS: 80053; 85025

== ENCOUNTER 2022-07-13 04:59 | Inpatient (IN) | payer OTHER ==
[~2022-07-13] VITALS: Ht 160 cm; Wt 68.0 kg
[~2022-07-13 04:59] MED LIST changes: +BISA5EC PO; +MAGCIT300 PO
[2022-07-13 05:33] LABS: BASOPHILS ABSOLUTE AUTO 0.05 K/mm3 (0.00-0.23); BASOPHILS PERCENT AUTO 0 % (0-2); EOSINOPHILS ABSOLUTE AUTO 0.02 K/mm3 (0.00-0.68); EOSINOPHILS PERCENT AUTO 0 % (0-6); Hemoglobin 14.8 g/dL (11.5-16.0); IMMATURE GRAN ABSOLUTE AUTO 0.04 K/mm3 (0.00-0.10); IMMATURE GRAN PERCENT AUTO 0 % (0-1); LYMPHOCYTES ABSOLUTE AUTO 1.77 K/mm3 (0.84-5.20); LYMPHOCYTES PERCENT AUTO 16 % (21-46); MONOCYTES ABSOLUTE AUTO 0.59 K/mm3 (0.16-1.47); MONOCYTES PERCENT AUTO 5 % (4-13); Mean Corpuscular HGB 29.2 pg (26.0-34.0); Mean Corpuscular HGB Conc 32.9 g/dL (31.5-36.5); Mean Corpuscular Volume 89 fL (80-100); Mean Platelet Volume 9.9 fL (9.1-12.4); NEUTROPHILS ABSOLUTE AUTO 8.81 K/mm3 (1.96-9.15); NEUTROPHILS PERCENT AUTO 78 % (41-73); Platelet Count 335 K/mm3 (150-400); RDW Coefficient Variation 12.7 % (11.7-14.2); RDW Standard Deviation 41.2 fL (35.1-46.3); Red Blood Cell Count 5.07 M/mm3 (3.80-5.20); White Blood Cell Count 11.28 K/mm3 (4.00-11.30)
[2022-07-13 05:53] LABS: Bun/Creatinine Ratio 11.4 (12.0-20.0); Calcium, Blood 8.9 mg/dL (8.5-10.1); Creatinine, Blood 1.4 mg/dL (0.40-1.00); Potassium, Blood 4.7 mmol/L (3.5-5.5)
[2022-07-13 06:00] LABS: Base Excess Venous -10.6 mmol/L; Bicarbonate Venous 15.6 mmol/L (24.0-30.0); PCO2 Venous 55.5 mmHg (38-42)
[2022-07-13 06:02] LABS: pH Blood Venous 7.13 (7.34-7.37)
[2022-07-13 06:33] LABS: Creatine Kinase MB 18.2 ng/mL (0.0-3.6); Creatine Kinase MB Index 2.8 (0.0-4.0)
--- NOTE | 2022-07-13 09:30 | NUR ---
Call to ED for report. Nurse is busy in a pt's room, and will call back to give report.
[2022-07-13 10:28] LABS: Source, Urine Clean Catch
[2022-07-13 10:44] LABS: Appearance, Urine Clear (Clear); Bilirubin, Urine Neg (Neg); Blood, Urine 4+ (Neg); Color, Urine Yellow (P-Yellow); Glucose Qualitative, Urine Neg (Neg); Ketones, Urine 1+ (Neg); Leukocyte Esterase, Urine Neg (Neg); Nitrite, Urine Neg (Neg); Protein, Urine 1+ (Neg); Urobilinogen, Urine NORM (Normal)
--- NOTE | 2022-07-13 10:44 | NUR ---
Telephone report from ISIDRO Cruz at this time. Pt has had new onset left sided weakness and numbness; RN reports that Dr. Rios was notified and that CT scan will be ordered per the doctor.
[2022-07-13 10:53] LABS: Bacteria Rare /hpf; Red Blood Cells, Urine 0-2 /hpf (0-2); Squamous Epithelial Cells Rare /hpf (Few); White Blood Cells, Urine 0-2 /hpf (0-5)
[2022-07-13 11:00] LABS: U Amphetamine Screen Not Detected; U Barbituate Screen Not Detected; U Benzodiazapine Screen DETECTED; U Buprenorphine Screen Not Detected; U Cannabinoids Screen Not Detected; U Cocaine Screen Not Detected; U Methadone Screen Not Detected; U Methamphetamine Screen Not Detected; U Opiates Screen Not Detected; U Oxycodone Screen Not Detected; U Phencyclidine Screen Not Detected; U Propoxyphene Screen Not Detected
--- NOTE | 2022-07-13 11:38 | NUR ---
Dr. Dumont here, rounding with Dr. Katz and students. Pt will get CT scan, and if CT scan is WNL, will continue to keep pt NPO until after she is evaluated by Speech Therapy for asipiration risk/swallow ability. Pt is alert , speaks softly during conversation. Denies that anyone has hurt her. Asked her specifically about multiple and scattered bruising to her BLE, more on the left than on the right. She has significant pain on the left side when she is is rolled back and forth for pt care. Weakness noted on the left leg, but not on the left arm nor either extremity on the right. Pt states that she feels pain all over, but more so in the left upper leg. She is lying in bed now, appears to be drifting off to sleep. Spo2 98% on 6 l/min of oxygen, nc. delivery.
[2022-07-13] MEDS ORDERED: TRAZ150T57 PO (11:51)
[2022-07-13] MEDS ORDERED: OMEP20ER PO (11:53)
[2022-07-13] MEDS ORDERED: BUDESONIDE-FO10.2 G2 INH (11:54)
[2022-07-13 14:54] LABS: Base Excess Venous -3.8 mmol/L; Bicarbonate Venous 21.4 mmol/L (24.0-30.0); PCO2 Venous 39.4 mmHg (38-42); pH Blood Venous 7.35 (7.34-7.37)
[2022-07-13 14:59] LABS: Hematocrit 34.6 % (33.0-51.0); Hemoglobin 12.1 g/dL (11.5-16.0)
[2022-07-13 15:22] LABS: Calcium, Blood 7.8 mg/dL (8.5-10.1); Creatinine, Blood 0.94 mg/dL (0.40-1.00); Potassium, Blood 4.8 mmol/L (3.5-5.5)
--- NOTE | 2022-07-13 15:29 | NUR ---
Pt is more awake now. Her mother is at the bedside. 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 Mom says that "my grandson, pt's 7 year old son, called my this morning when he found her passed out". She said that her went upstairs and found her. States that the pt has been in recovery for 7 years and lives on the same property as herself. Pt is asking for water to drink. She is using moistened mouth swabs for relief of dry mouth. Speech therapy swallow evaluation will be done this afternoon, PER [facility]. Pt showed me that her tongue is very sore and on the tip there are at least three round white patches and what appears to be bruising/small cuts on the left side. Call to attending resident to request something for pt's tongue soreness. New orders received.
--- NOTE | 2022-07-13 16:54 | NUR ---
Call to Dr. Cervantes to let her know that the pt has been cleared to take pills whole with water, home med list is complete and documented in the chart so that meds can now be ordered if needed.
--- NOTE | 2022-07-13 18:52 | NUR ---
Weaned down to 1 l/min of oxygen spo2 98%. Could probably wean completely off of the oxygen, but she is often drowsy and sleeping. Coarse sounding productive cough occasionally. States that throat is still sore. Did not take anything p.o. except for ice water following the swallow evalution. Pt states that the magic mouthwash helped and gave some relief.
[2022-07-14 04:48] LABS: BASOPHILS ABSOLUTE AUTO 0.02 K/mm3 (0.00-0.23); BASOPHILS PERCENT AUTO 0 % (0-2); EOSINOPHILS ABSOLUTE AUTO 0.03 K/mm3 (0.00-0.68); EOSINOPHILS PERCENT AUTO 0 % (0-6); Hematocrit 32.4 % (33.0-51.0); Hemoglobin 11.2 g/dL (11.5-16.0); IMMATURE GRAN ABSOLUTE AUTO 0.03 K/mm3 (0.00-0.10); IMMATURE GRAN PERCENT AUTO 0 % (0-1); LYMPHOCYTES PERCENT AUTO 20 % (21-46); MONOCYTES ABSOLUTE AUTO 0.58 K/mm3 (0.16-1.47); MONOCYTES PERCENT AUTO 6 % (4-13); Mean Corpuscular HGB 29.4 pg (26.0-34.0); Mean Corpuscular HGB Conc 34.6 g/dL (31.5-36.5); Mean Corpuscular Volume 85 fL (80-100); Mean Platelet Volume 9.8 fL (9.1-12.4); NEUTROPHILS ABSOLUTE AUTO 7.08 K/mm3 (1.96-9.15); NEUTROPHILS PERCENT AUTO 74 % (41-73); Platelet Count 150 K/mm3 (150-400); RDW Standard Deviation 39.7 fL (35.1-46.3); Red Blood Cell Count 3.81 M/mm3 (3.80-5.20); White Blood Cell Count 9.64 K/mm3 (4.00-11.30)
[2022-07-14 05:17] LABS: Albumin, Blood 2.8 g/dL (3.4-5.0); Albumin/Globulin Ratio 1.1 (0.8-1.8); Bilirubin, Total 0.5 mg/dL (0.1-1.0); Bun/Creatinine Ratio 16.9 (12.0-20.0); Calcium, Blood 8.3 mg/dL (8.5-10.1); Creatinine, Blood 0.83 mg/dL (0.40-1.00); Globulin, Blood 2.5 g/dL (2.2-4.0); Potassium, Blood 3.8 mmol/L (3.5-5.5); Total Protein, Blood 5.3 g/dL (6.4-8.2)
--- NOTE | 2022-07-14 06:25 | NUR ---
SHIFT SUMMARY PT LETHARGIC BUT AROUSABLE TO VERBAL STIMULI. PT OPENS EYES OCCASSIONALLY BUT IS RESPONDING TO QUESTIONS APPROPRIATELY. PT CANNOT RECALL EVENTS LEADING UP TO ADMISSION TO HOSPITAL. STATES REMEMBERS "SMOKING SOMETHING" THAT SHE GOT FROM A "SO CALLED FRIEND" BUT DOES NOT REMEMBER WHAT HAPPENED AFTERWARDS. VS; NSR W/HR IN 80'S, SBP 1 TEEN'S -120, O2 SATS >94% ON RA. PT DENIES SOB, CHEST PAIN OR CHEST PRESSURE. PT IS COUGHING UP DARK, BROWN THICK SPUTUM. PT REPORTS SEVERE PAIN IN L LEG/HIP AND TAIL BONE. REPOSITIONING TO HELP RELIEVE PAIN. PT L LEG IS WEAK; NOT ABLE TO PUSH AGAINST RESISTANCE. PT RESTED MOST OF SHIFT. DID EAT A SMALL SNACK AND DRINK SOME WATER BUT OTHERWISE SLEPT. MOTHER AT BEDSIDE AND BOYFRIEND ALSO AT BEDSIDE. PT REPORTS SHE FEELS SAFE AT HOME AND DOES NOT HAVE ANY CONCERN FOR SAFETY ISSUES. CAMPO IN PLACE AND DRAINING CLEAR YELLOW URINE. PT HAS BRUISING ON LEGS, BUTTOCKS AND INNER THIGHS; PICTURES IN CHART. PT STATES IT IS FROM "ITCHING ALOT" AND THAT SHE "BRUISES VERY EASILY". NO ACUTE CHANGES. PT RESTING AND CALL LIGHT IS IN REACH
--- NOTE | 2022-07-14 09:47 | NUR ---
Pt was sleeping in the recliner. 2 person transfer with jovana to pivot back into bed for transport to imaging for xray. Pt is not bearing weight on the left leg. She is crying in pain. Asking for anti-anxiety medications.
--- NOTE | 2022-07-14 11:11 | NUR ---
Pt went for imaging. Transfer from bed to stretcher and back again put her in significant pain. She is asking for anti-anxiety meds, states that she takes ativan t.i.d. at home. She falls asleep quickly after the transfers She has been drinking water, but shown little to no interest in food.
--- NOTE | 2022-07-14 11:50 | NUR ---
The pt appears to be sleeping on her right side. respirations are even, unlabored, heart rate normal sinus rhythm, 88 bpm.
--- NOTE | 2022-07-14 13:19 | NUR ---
Pt is awake, was able to transfer from the bed to the BSC to void and have a small BM. Asking for her antianxiety meds, which she takes t.i.d. She is able to move her left leg much more than before; however, she is still having 'pins and needles' in the left leg and it is still weak.
--- NOTE | 2022-07-14 17:54 | NUR ---
TRANSFER NOTE PT TRANSFERRED FROM [facility] [id number]. PT ORIENTED TO ROOM AND CALL LIGHT. PT HAS TWO PEOPLE AT THE BS. REPORT RECEIVED FROM JULISSA IN [facility].
--- NOTE | 2022-07-15 05:01 | NUR ---
SHIFT SUMMARY ADMITTED FOR ASPIRATION PNEUMOMIA/OD. FULL CODE. TELEMETRY: NSR @ 93. PLAN IS FOR IV ANTIB RX, DC HOME WITH FAMILY, AND POSSIBLE OUTPT PSYCH. SHE IS ON A FULL LIQUID DIET. WE ARE HOPING TO ADVANCE THIS DIET. SHE IS WITHDRAWN AND QUIET. 1 ASSIST W/FWW - BRP. HX OF POLYSUBSTANCE ABUSE
[2022-07-15 05:31] LABS: Hematocrit 34.2 % (33.0-51.0); Hemoglobin 11.6 g/dL (11.5-16.0); Mean Corpuscular HGB 28.5 pg (26.0-34.0); Mean Corpuscular HGB Conc 33.9 g/dL (31.5-36.5); Mean Corpuscular Volume 84 fL (80-100); Mean Platelet Volume 10.3 fL (9.1-12.4); Platelet Count 174 K/mm3 (150-400); RDW Coefficient Variation 12.7 % (11.7-14.2); RDW Standard Deviation 38.5 fL (35.1-46.3); Red Blood Cell Count 4.07 M/mm3 (3.80-5.20); White Blood Cell Count 8.85 K/mm3 (4.00-11.30)
[2022-07-15 06:00] LABS: Albumin, Blood 2.7 g/dL (3.4-5.0); Bilirubin, Total 0.4 mg/dL (0.1-1.0); Bun/Creatinine Ratio 10.9 (12.0-20.0); Calcium, Blood 7.7 mg/dL (8.5-10.1); Creatinine, Blood 0.73 mg/dL (0.40-1.00); Globulin, Blood 2.6 g/dL (2.2-4.0); Potassium, Blood 3.7 mmol/L (3.5-5.5); Total Protein, Blood 5.3 g/dL (6.4-8.2)
[2022-07-15] MEDS ORDERED: MIRALAX17 GM PO (10:10)
[2022-07-15] MEDS ORDERED: AMOCLA875 PO (10:10)
[2022-07-15] MEDS ORDERED: NYST237S PO (10:11)
[2022-07-15] MEDS ORDERED: VISBIOME 112.51 EACH PO (10:11)
--- NOTE | 2022-07-15 16:36 | NUR ---
PATIENT DISCHARGED VIA W/C, MOTHER ACCOMPANYING, BOTH STATED UNDERSTANDING OF DISCHARGE INSTRUCTION AND FOLLOW UP NEEDS
[2022-07-16 09:10] LABS: HBSAG SCREEN Negative (Negative); HCV AB <0.1 (0.0-0.9); HEP B CORE AB, TOT Negative (Negative); HIV AB/P24 AG SCREEN Non Reactive (Non Reactive)
== END 2022-07-15 16:08 | disposition home health service (06) | DRG 917 ==
LOC: ER 04:59 → MEDS 08:26 → PCU 08:26 → MEDS 07-14 17:17
PROVIDERS: Student in an Organized Health Care Education/Training Program; ADMIT Hospitalist
DX: T40.411A Poisoning by fentanyl or fentanyl analogs, accidental (unintentional), initial encounter (principal); G92.8 Other toxic encephalopathy; J18.9 Pneumonia, unspecified organism; J96.01 Acute respiratory failure with hypoxia; J96.02 Acute respiratory failure with hypercapnia; N17.9 Acute kidney failure, unspecified; E87.4 Mixed disorder of acid-base balance; M62.82 Rhabdomyolysis; Z20.822 Contact with and (suspected) exposure to COVID-19; J45.909 Unspecified asthma, uncomplicated; M79.7 Fibromyalgia; F32.A Depression, unspecified; F90.9 Attention-deficit hyperactivity disorder, unspecified type; F41.9 Anxiety disorder, unspecified; Z87.11 Personal history of peptic ulcer disease; Z87.891 Personal history of nicotine dependence; Z90.49 Acquired absence of other specified parts of digestive tract; Z98.890 Other specified postprocedural states; Z88.8 Allergy status to other drugs, medicaments and biological substances; Z91.041 Radiographic dye allergy status; Z79.899 Other long term (current) drug therapy; X58.XXXA Exposure to other specified factors, initial encounter
CPT/HCPCS: 36415; 51702; 51798; 70450; 71045; 73502; 80048; 80053; 81001; 82550; 82553; 82803; 83605; 85014; 85018; 85025; 85027; 86704; 86708; 86803; 87040; 87340; 87389; 92526; 92610; 94640; 94664; 94760; 94762; 96361; 96361-59; 96365-59; 96375-59; 97110; 97116; 97162; 97530; 99285-25; A9270; J0295; J1790; J2543; J7030; J7050

== ENCOUNTER → 2023-02-23 | Outpatient (CLI) | payer OTHER ==
[~2023-02-23] MED LIST changes: +AMOCLA875 PO; +BUDESONIDE-FO10.2 G2 INH; +MIRALAX17 GM PO; +NYST237S PO; +TRAZ150T57 PO; +VISBIOME 112.51 EACH PO
[2023-02-23 15:50] LABS: BASOPHILS ABSOLUTE AUTO 0.04 K/mm3 (0.00-0.23); BASOPHILS PERCENT AUTO 1 % (0-2); EOSINOPHILS PERCENT AUTO 4 % (0-6); Hematocrit 39.3 % (33.0-51.0); Hemoglobin 13.7 g/dL (11.5-16.0); IMMATURE GRAN ABSOLUTE AUTO 0.01 K/mm3 (0.00-0.10); IMMATURE GRAN PERCENT AUTO 0 % (0-1); LYMPHOCYTES ABSOLUTE AUTO 2.45 K/mm3 (0.84-5.20); LYMPHOCYTES PERCENT AUTO 52 % (21-46); MONOCYTES PERCENT AUTO 9 % (4-13); Mean Corpuscular HGB 28.4 pg (26.0-34.0); Mean Corpuscular HGB Conc 34.9 g/dL (31.5-36.5); Mean Corpuscular Volume 82 fL (80-100); Mean Platelet Volume 10.4 fL (9.1-12.4); NEUTROPHILS PERCENT AUTO 34 % (41-73); Platelet Count 168 K/mm3 (150-400); RDW Coefficient Variation 11.9 % (11.7-14.2); RDW Standard Deviation 35.3 fL (35.1-46.3); Red Blood Cell Count 4.82 M/mm3 (3.80-5.20)
[2023-02-23 16:00] LABS: Albumin, Blood 3.9 g/dL (3.4-5.0); Albumin/Globulin Ratio 1.3 (0.8-1.8); Bilirubin, Total 0.2 mg/dL (0.1-1.0); Bun/Creatinine Ratio 17.4 (12.0-20.0); Calcium, Blood 8.9 mg/dL (8.5-10.1); Creatinine, Blood 0.86 mg/dL (0.40-1.00); Potassium, Blood 4.4 mmol/L (3.5-5.5); Total Protein, Blood 6.9 g/dL (6.4-8.2)
== END | disposition home or self-care (01) ==
LOC: LAB SHORT 15:45 → LAB 15:45
PROVIDERS: Physician Assistant
DX: R10.9 Unspecified abdominal pain (principal)
CPT/HCPCS: 80053; 83690; 85025

== ENCOUNTER → 2025-08-26 | Outpatient (CLI) | payer OTHER ==
[2025-08-26 19:58] LABS: BASOPHILS ABSOLUTE AUTO 0.06 K/mm3 (0.00-0.23); BASOPHILS PERCENT AUTO 1 % (0-2); EOSINOPHILS ABSOLUTE AUTO 0.38 K/mm3 (0.00-0.68); EOSINOPHILS PERCENT AUTO 6 % (0-6); Hematocrit 39.7 % (33.0-51.0); Hemoglobin 13.3 g/dL (11.5-16.0); IMMATURE GRAN ABSOLUTE AUTO 0.01 K/mm3 (0.00-0.10); IMMATURE GRAN PERCENT AUTO 0 % (0-1); LYMPHOCYTES ABSOLUTE AUTO 2.11 K/mm3 (0.84-5.20); LYMPHOCYTES PERCENT AUTO 34 % (21-46); MONOCYTES ABSOLUTE AUTO 0.43 K/mm3 (0.16-1.47); MONOCYTES PERCENT AUTO 7 % (4-13); Mean Corpuscular HGB Conc 33.5 g/dL (31.5-36.5); Mean Corpuscular Volume 86 fL (80-100); NEUTROPHILS ABSOLUTE AUTO 3.15 K/mm3 (1.96-9.15); NEUTROPHILS PERCENT AUTO 51 % (41-73); NRBC ABSOLUTE 0.00 K/mm3 (0.00-0.02); NRBC Auto 0.0 /100 WBC (0.0-0.2); Platelet Count 161 K/mm3 (150-400); RDW Coefficient Variation 13.0 % (11.7-14.2); RDW Standard Deviation 40.0 fL (35.1-46.3)
[2025-08-26 22:27] LABS: Alanine Aminotransfer (ALT/SGP 28 U/L (12-78); Albumin, Blood 4.0 g/dL (3.4-5.0); Albumin/Globulin Ratio 1.2 (0.8-1.8); Anion Gap 9 mmol/L (3-11); Aspartate Aminotrans (AST/SGOT 21 U/L (12-37); Bilirubin, Total 0.2 mg/dL (0.1-1.0); Blood Urea Nitrogen 9 mg/dL (8-24); CHOL/HDL RATIO 2.4; CO2, Blood 28 mmol/L (21-32); Calcium, Blood 9.0 mg/dL (8.5-10.1); Chloride, Blood 105 mmol/L (98-108); Cholesterol 205 mg/dL (50-200); Creatinine, Blood 0.64 mg/dL (0.40-1.00); Globulin, Blood 3.2 g/dL (2.2-4.0); Glucose, Blood 89 mg/dL (70-99); HDL Cholesterol 86 mg/dL (>39); LDL/HDL RATIO 1.2; Low Density Lipoprotein Chol 102 mg/dL (0-110); Potassium, Blood 4.2 mmol/L (3.5-5.5); Sodium, Blood 138 mmol/L (136-145); Thyroid Stimulating Hormone 1.230 uIU/mL (0.360-4.800); Total Protein, Blood 7.2 g/dL (6.4-8.2); Triglycerides 85 mg/dL (30-160); Very Low Density Lipoprot Chol 17 mg/dL (6-32)
== END ==
LOC: LAB 17:15 → LAB SHORT 17:15
PROVIDERS: Family Medicine
DX: M79.7 Fibromyalgia (principal); F43.23 Adjustment disorder with mixed anxiety and depressed mood; E78.1 Pure hyperglyceridemia
CPT/HCPCS: 80053; 80061; 83036; 84443; 85025